=== PATIENT | female | born 1980 | race Caucasian/White ===

== ENCOUNTER 2018-06-13 18:48 | Emergency (ER) | payer SELFPAY ==
[2014-11-30 11:19] VITALS: BMI 23.4
[~2018-06-13 18:48] MED LIST: BUPR-126 PO; BUTA1CAP4 PO; CAR6.25 PO; CIPR-326 PO; CYCL10TA29 PO; GABA-549 PO; KET10 PO; MULT-1379 PO; NICO-218 TD; NO RTN MEDS; OND4 PO; PER PO; PRO25 PO; TRAM100T8 PO; [UNRECOGNIZED DRUG - CODE] IJ
[2018-06-13 18:49] VITALS: BP 152/86
--- NOTE | 2018-06-13 18:52 | ER Report ---
History and Physical Time Seen By MD: 18:52 Hx. of Stated Complaint: LONG-TERM CLEARANCE HPI/ROS CHIEF COMPLAINT: Long Term clearance HISTORY OF PRESENT ILLNESS: 38-year-old female patient presents to emergency room with [facility] for residential clearance. Patient was intoxicated. Patient denies having any chest pain, shortness breath, nausea, vomiting or diarrhea. Patient denies having any pain. Patient states she has no complaints at this time. Allergies: Coded Allergies: amoxicillin (Verified Allergy, Mild, rash, 04/29/17) Home Meds Reported Medications Multivits,Th W-Fe,Other Min (THERA-M) 1 Each Tablet, 1 EACH PO QDAY 05/01/17 Nicotine (NICODERM CQ) 1 Each Patch.td24, 1 EACH TD QDAY 14 MG PATCH. CHANGE EVERY 24 HOURS. 05/01/17 Past Medical/Surgical History Patient has a past medical history of hypertension, reflux, alcohol use, eating disorder, depression, suicide attempt. Patient has a surgical history of shoulder surgery. Reviewed Nurses Notes: Yes Hx Smoking: No (Uses chewing tobacco) Smoking Status: Current: Every Day Smoker Hx Substance Use Disorder: No Hx Alcohol Use: Yes Constitutional Vital Sign - Last 24 Hours 06/13/18 18:49 Temp 98.7 Pulse 118 Resp 17 B/P (MAP) 152/86 Pulse Ox 93 O2 Delivery Room Air Physical Exam General appearance: Alert no distress. Respiratory: Chest is non tender, lungs are clear to auscultation. Cardiac: Regular rate and rhythm. DIFFERENTIAL DIAGNOSIS: After history and physical exam differential diagnosis was considered for alcohol intoxication, residential clearance. Medical Decision Making ED Course/Re-evaluation ED Course Patient was medicated and examined, history and physical were obtained. Differential diagnoses were considered. On examination lungs are clear, heart is regular, abdomen soft and nontender. With patient not having any complaints we'll go ahead and discharge her to the residential this time. I asked that she follow- up with the medical staff the alf center with any concerns. She is return to emergency room with any medical emergencies. Decision to Disposition Date: Jun 13, 2018 Decision to Disposition Time: 18:58 Depart Departure Latest Vital Signs Vital Signs Date Time Temp Pulse Resp B/P (MAP) Pulse Ox O2 Delivery O2 Flow Rate FiO2 06/13/18 18:49 98.7 118 17 152/86 93 Room Air Impression: Primary Impression: Medical clearance for incarceration Additional Impression: Alcohol intoxication Condition: Improved Disposition: COUNT INCLUDES THE [facility] TO LONG-TERM/CORRECTIONAL F Patient Instructions: Alcohol Intoxication (ED) Additional Instructions: Increase fluid intake. Get plenty of rest. Follow up with the medical staff at the alf center with any concerns. Return to the ER with any medical emergencies. Problem Qualifiers Additional Impression: Alcohol intoxication Complication of substance-induced condition: uncomplicated Qualified Codes: F10.920 - Alcohol use, unspecified with intoxication, uncomplicated CHARLENE BRAVO Jun 13, 2018 18:52
== END 2018-06-13 19:00 ==
LOC: ER 18:53
DX: F10.920 Alcohol use, unspecified with intoxication, uncomplicated (principal)
CPT/HCPCS: 99281

== ENCOUNTER 2018-09-22 22:00 | Emergency (ER) | payer SELFPAY ==
[2014-11-30 11:19] VITALS: Wt 72.6 kg
[2018-09-22 22:01] VITALS: BP 126/88
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
[2018-09-22] MEDS ORDERED: WATER STERILE(*) 10 ML VIAL 10 ML ONE (22:41)
== END 2018-09-22 23:03 | disposition home or self-care (01) ==
LOC: ER 22:14
DX: S40.012A Contusion of left shoulder, initial encounter (principal); R07.0 Pain in throat; S30.811A Abrasion of abdominal wall, initial encounter; M79.661 Pain in right lower leg; Y04.2XXA Assault by strike against or bumped into by another person, initial encounter
CPT/HCPCS: 99284; A4216

== ENCOUNTER 2018-09-25 06:37 | Emergency (ER) | payer SELFPAY ==
[2014-11-30 11:19] VITALS: Wt 72.6 kg
--- NOTE | 2018-09-25 07:09 | ER Report ---
History and Physical Time Seen By MD: 07:09 Hx. of Stated Complaint: PATIENT REPORTS LEFT HIP, LEG, AND ANKLE PAIN THAT STARTED ON SUNDAY MORNING, AND HAS BEEN GETTING PROGRESSIVELY WORSE HPI/ROS CHIEF COMPLAINT: Left-sided back pain with radiation to distal left lower extremity HISTORY OF PRESENT ILLNESS: Patient is a 38-year-old female here with complaints of left lower extremity pain, pain radiating from the lumbar spine into the lateral left lower back into the: Down to the distal extremity consistent with a radiculopathy. Patient reports having similar symptoms in the past. Patient is neurovascularly intact at time of evaluation, denies bowel or bladder incontinence, fevers, chills, urinary retention. REVIEW OF SYSTEMS: Constitutional: No fever, no chills. Eyes: No discharge. ENT: No sore throat. Cardiovascular: No chest pain, no palpitations. Respiratory: No cough, no shortness of breath. Gastrointestinal: No abdominal pain, no vomiting. Genitourinary: No hematuria. Musculoskeletal: + Left lower back pain. Skin: No rashes. Neurological: Neurovascular exam intact in the distal lower extremities Allergies: Coded Allergies: amoxicillin (Verified Allergy, Mild, rash, 09/25/18) Home Meds Active Scripts Cyclobenzaprine Hcl (CYCLOBENZAPRINE HCL) 10 Mg Tablet, 10 MG PO Q8H PRN for MUSCLE SPASMS, #20 TAB 0 Refills Prov:KATHIE ARRIAGA DO 09/25/18 Tramadol Hcl (TRAMADOL HCL) 50 Mg Tablet, 50 MG PO Q6H PRN for PAIN, #12 TAB 0 Refills Prov:KATHIE ARRIAGA DO 09/25/18 Prednisone (PREDNISONE) 50 Mg Tablet, 50 MG PO QDAY for 5 Days, #5 TAB Prov:KATHIE ARRIAGA DO 09/25/18 Reported Medications Multivits,Th W-Fe,Other Min (THERA-M) 1 Each Tablet, 1 EACH PO QDAY 05/01/17 Hx Smoking: No (Uses chewing tobacco) Smoking Status: Current: Every Day Smoker Hx Substance Use Disorder: No Hx Alcohol Use: Yes Constitutional Physical Exam General Appearance: The patient is alert, has no immediate need for airway protection and no signs of toxicity. Uncomfortable appearing Eyes: Pupils equal and round no pallor or injection. ENT, Mouth: Mucous membranes are moist. Respiratory: There are no retractions, lungs are clear to auscultation. Cardiovascular: Regular rate and rhythm. Gastrointestinal: Abdomen is soft and non tender, no masses, bowel sounds normal. Neurological: Reflexes intact in the bilateral lower extremities, sensation intact, good strength bilaterally in hip flexors Skin: Warm and dry, no rashes. Musculoskeletal: Tenderness on palpation of the left lower back, midline back of his step-offs Extremities are nontender, nonswollen and have full range of motion. DIFFERENTIAL DIAGNOSIS: After history and physical exam differential diagnosis was considered for back pain including but not limited to muscular pain, herniated disc, spine fracture, intra-abdominal causes and urinary tract infection. Medical Decision Making Data Points Laboratory Hematology Test 09/25/18 07:35 Human Chorionic Gonadotropin, Qual Negative (NEGATIVE) Chemistry Test 09/25/18 07:35 Human Chorionic Gonadotropin, Qual Negative (NEGATIVE) EKG/Imaging Imaging PATIENT NAME: Lisette Painter : 1980 MR: [id number] V: [id number] EXAM DATE: [id number] ORDERING PHYSICIAN: KATHIE ARRIAGA TECHNOLOGIST: Location: [facility] [place] Patient: Lisette Painter : 1980 Visit/Account:[id number] Date of Sevice: 09/25/2018 EXAMINATION: CT Lumbar spine without intravenous contrast HISTORY: Low back pain. COMPARISON: Lumbar spine radiographs dated 12/30/2013. TECHNIQUE: Noncontrast axial CT of the lumbar spine with sagittal and coronal reformats. One of the following dose optimization techniques was utilized in the performance of this exam: Automated exposure control; adjustment of the mA and/or kV according to the patient's size; or use of an iterative reconstruction technique. Specific details can be referenced in the facility's radiology CT exam operational policy. FINDINGS: Alignment: Minimal convex rightward curvature. Vertebral bodies: Mildly displaced fracture through the S4 vertebral body and the associated posterior elements. Normal vertebral body height in the lumbar spine. Posterior elements: Mild facet hypertrophy in the lower lumbar spine. Hardware: None. Disc Spaces: Moderate disc height loss with small disc osteophytes at L5-S1. Left central/foraminal mass at L5-S1 extending superiorly along the posterior aspect of the L5 vertebral body suspicious for disc extrusion. This may be impinging the left L5 nerve root. Soft tissues: Minimal soft tissue swelling surrounding the sacral fracture. Visualized retroperitoneal / abdominal structures: Negative. IMPRESSION: 1. Acute mildly displaced fracture through the S4 vertebral body and the asso ciated posterior elements. 2. No acute osseous abnormality of the lumbar spine. 3. Degenerative disc disease at L5-S1. Left central/foraminal mass at L5-S1 extending superiorly along the posterior aspect of the L5 vertebral body suspicious for disc extrusion. This may be impinging the left L5 nerve root. ED Course/Re-evaluation ED Course Patient is a 38-year-old female here with complaints of low back pain, pain and paresthesias down the left lower extremity to the heel consistent with radiculopathy. CT imaging of the lumbar spine showed likely disc herniation with possible impingement on the L5 root. Patient was given prednisone, and diazepam with significant improvement of symptoms. Patient is given Flexeril, prednisone and tramadol for outpatient treatment and advised to follow-up with orthopedic spine surgery where neurosurgery as needed. Patient was stable at time of discharge, denies bowel or bladder incontinence, fevers or chills, motor weakness. Returned cautions provided. Decision to Disposition Date: Sep 25, 2018 Decision to Disposition Time: 09:08 Depart Departure Latest Vital Signs Impression: Primary Impression: Radiculopathy Additional Impression: Back pain Condition: Improved Disposition: HOME OR SELF-CARE New Scripts Cyclobenzaprine Hcl (CYCLOBENZAPRINE HCL) 10 Mg Tablet 10 MG PO Q8H PRN for MUSCLE SPASMS, #20 TAB 0 Refills Prov: KATHIE ARRIAGA DO 09/25/18 Tramadol Hcl (TRAMADOL HCL) 50 Mg Tablet 50 MG PO Q6H PRN for PAIN, #12 TAB 0 Refills Prov: KATHIE ARRIAGA DO 09/25/18 Prednisone (PREDNISONE) 50 Mg Tablet 50 MG PO QDAY for 5 Days, #5 TAB Prov: KATHIE ARRIAGA DO 09/25/18 Patient Instructions: Lumbar Radiculopathy (ED) Additional Instructions: Please take prednisone 1 tablet daily for 5 days, tramadol 1 tablet every 8 hours as needed for pain control, ibuprofen, naproxen as needed for primary pain control, Flexeril every 4-6 hours as needed for muscle spasm. Please follow-up with your family doctor to discuss possible treatment options including physical therapy, orthopedics as indicated. Please return promptly if you develop bowel or bladder incontinence, urinary retention, fevers, worsening pain, motor weakness Problem Qualifiers KATHIE ARRIAGA DO Sep 25, 2018 07:09
[2018-09-25] MEDS ORDERED: predniSONE 20 MG TAB PO ONE (07:25)
[2018-09-25] MEDS ORDERED: DIAZEPAM 10 MG TAB PO ONE (07:25)
--- NOTE | 2018-09-25 08:59 | RADIOLOGY IMAGING REPORT ---
FACILITY: [facility] [place] PATIENT NAME: Lisette Painter : 1980 MR: [id number] V: [id number] EXAM DATE: ORDERING PHYSICIAN: KATHIE ARRIAGA TECHNOLOGIST: Location: [facility] Patient: Lisette Painter : 1980 Visit/Account:[id number] Date of Sevice: 09/25/2018 EXAMINATION: CT Lumbar spine without intravenous contrast HISTORY: Low back pain. COMPARISON: Lumbar spine radiographs dated 12/30/2013. TECHNIQUE: Noncontrast axial CT of the lumbar spine with sagittal and coronal reformats. One of the following dose optimization techniques was utilized in the performance of this exam: Autom ated exposure control; adjustment of the mA and/or kV according to the patient's size; or use of an i terative reconstruction technique. Specific details can be referenced in the facility's radiology C T exam operational policy. FINDINGS: Alignment: Minimal convex rightward curvature. Vertebral bodies: Mildly displaced fracture through the S4 vertebral body and the associated posterio r elements. Normal vertebral body height in the lumbar spine. Posterior elements: Mild facet hypertrophy in the lower lumbar spine. Hardware: None. Disc Spaces: Moderate disc height loss with small disc osteophytes at L5-S1. Left central/foraminal m ass at L5-S1 extending superiorly along the posterior aspect of the L5 vertebral body suspicious for disc extrusion. This may be impinging the left L5 nerve root. Soft tissues: Minimal soft tissue swelling surrounding the sacral fracture. Visualized retroperitoneal / abdominal structures: Negative. IMPRESSION: 1. Acute mildly displaced fracture through the S4 vertebral body and the associated posterior element s. 2. No acute osseous abnormality of the lumbar spine. 3. Degenerative disc disease at L5-S1. Left central/foraminal mass at L5-S1 extending superiorly rama g the posterior aspect of the L5 vertebral body suspicious for disc extrusion. This may be impinging the left L5 nerve root. Report Dictated By: Deyvi Swartz MD at 09/25/2018 8:49 AM Report E-Signed By: Deyvi Swartz MD at 09/25/2018 8:55 AM WSN:[id number]
[2018-09-25] MEDS ORDERED: PRED50TA22 PO (09:13)
[2018-09-25] MEDS ORDERED: TRAM-420 PO (09:13)
[2018-09-25] MEDS ORDERED: CYCL10TA29 PO (09:13)
[2018-09-25 09:22] VITALS: BP 129/60
== END 2018-09-25 09:27 | disposition home or self-care (01) ==
LOC: ER 06:39
DX: M54.16 Radiculopathy, lumbar region (principal)
CPT/HCPCS: 36415; 72131; 84703; 99284; J7512